=== PATIENT | male | born 2005 | race Caucasian/White ===

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

== ENCOUNTER 2024-11-17 20:50 | Emergency (ER) | payer OTHER ==
[2024-11-17 22:10] VITALS: BP 138/78; PULSE 73
== END 2024-11-17 21:50 | disposition home or self-care (01) ==
LOC: LB.ED 20:50
DX: S50.812A Abrasion of left forearm, initial encounter (principal); W22.8XXA Striking against or struck by other objects, initial encounter
CPT/HCPCS: 99282; 99283